=== PATIENT | female | born 1970 | race Caucasian/White ===

== ENCOUNTER 2018-01-07 05:14 | Emergency (ER) | payer MEDICAID ==
[2018-01-07] MEDS: HYDROCODONE/APAP (5/325) TAB PO (07:00)
[2018-01-07] MEDS: IBUPROFEN 600 MG TAB PO (07:00)
== END 2018-01-07 08:16 | disposition home or self-care (01) ==
LOC: FTE 05:14
DX: S49.91XA Unspecified injury of right shoulder and upper arm, initial encounter (principal); F17.210 Nicotine dependence, cigarettes, uncomplicated; W01.0XXA Fall on same level from slipping, tripping and stumbling without subsequent striking against object, initial encounter; Y92.410 Unspecified street and highway as the place of occurrence of the external cause
CPT/HCPCS: 73030; 73030-RT; 73080-RT; 99283-25